=== PATIENT | female | born 1985 | race Hispanic/Latino ===

== ENCOUNTER 2018-03-23 22:27 | Emergency (ER) | payer MEDICAID ==
[2018-03-23] MEDS ORDERED: ONDANSETRON ODT 4 MG TAB ONE (22:49)
[2018-03-23] MEDS ORDERED: ACETAMINOPHEN EXTRA STRENGTH 500 MG TABLET ONE (22:49)
== END 2018-03-24 01:07 | disposition home or self-care (01) ==
LOC: EDH 22:27
DX: S00.03XA Contusion of scalp, initial encounter (principal); S00.83XA Contusion of other part of head, initial encounter; M32.9 Systemic lupus erythematosus, unspecified; Y04.0XXA Assault by unarmed brawl or fight, initial encounter; Y93.89 Activity, other specified; Y92.098 Other place in other non-institutional residence as the place of occurrence of the external cause; Y99.8 Other external cause status
CPT/HCPCS: 70450; 81025